=== PATIENT | female | born 1955 | race Caucasian/White ===

== ENCOUNTER 2016-07-06 08:28 | Day surgery (SDC) | payer BC ==
[2016-06-26 14:44] VITALS: BMI 29.4
[2016-07-06] MEDS ORDERED: PROPOFOL 20 ML ONE ×2 (08:37)
[2016-07-06 11:10] VITALS: TEMP 97.8
[2016-07-06 11:13] VITALS: BP 149/77; PULSE 68
--- NOTE | 2016-07-09 15:20 | PATH ---
Surgical Pathology Report Patient Name: YASHIRA BRITO [facility] [place]. Rec. #: [id number] /Age/Gender: 1955 (Age: 61) / F Account: [id number] Location: [facility]-ENDOSCOPY Taken: 07/06/2016 Received: 07/06/2016 Reported: 07/09/2016 Physicians: Haily Parra M.D. Specimen(s) Received A: BX COLON TRANSVERSE B: BX COLON DESCENDING C: BX SIGMOID D: BX DUODENUM E: BX ANTRUM F: BX GASTRIC BODY G: BX GE JUNCTION Clinical History Chronic diarrhea, abdominal pain, GERD Rule out celiac disease Final Diagnosis A. TRANSVERSE, BIOPSY: COLONIC MUCOSA WITH NO PATHOLOGIC FINDINGS. B. DESCENDING, BIOPSY: COLONIC MUCOSA WITH NO PATHOLOGIC FINDINGS. C. SIGMOID, BIOPSY: COLONIC MUCOSA WITH NO PATHOLOGIC FINDINGS. D. DUODENUM, BIOPSY: DUODENAL MUCOSA WITH NO PATHOLOGIC FINDINGS. Note: Features suggestive of celiac disease are not identified in this biopsy. E. ANTRUM, BIOPSY: MILD CHRONIC GASTRITIS. IMMUNOSTAIN IS NEGATIVE FOR H. PYLORI ORGANISMS. F. GASTRIC BODY, BIOPSY: MILD CHRONIC GASTRITIS. IMMUNOSTAIN IS NEGATIVE FOR H. PYLORI ORGANISMS. G. GE JUNCTION, BIOPSY: GASTRIC CARDIA-TYPE MUCOSA SHOWING MODERATE CHRONIC INFLAMMATION AND INTESTINAL METAPLASIA, COMPATIBLE WITH LY'S ESOPHAGUS IN THE APPROPRIATE CLINICAL/ENDOSCOPIC SETTING. NEGATIVE FOR DYSPLASIA. ESOPHAGEAL (SQUAMOUS) MUCOSA SHOWING FEATURES OF REFLUX ESOPHAGITIS. Electronically Signed Sherrie Long M.D. Gross Description A. Received in formalin, labeled "transverse" is a marin, irregular portion of soft tissue measuring 1.2 cm. in greatest dimension. The specimen is submitted in toto in one cassette. B. Received in formalin, labeled "descending" is a marin, irregular portion of soft tissue measuring 0.4 cm. in greatest dimension. The specimen is submitted in toto in one cassette. C. Received in formalin, labeled "sigmoid" is a marin, irregular portion of soft tissue measuring 0.4 cm. in greatest dimension. The specimen is submitted in toto in one cassette. D. Received in formalin, labeled "duodenum" are 6 marin, irregular portions of soft tissue ranging from 0.2-0.6 cm. in greatest dimension. The specimens are submitted in toto in one cassette. E. Received in formalin, labeled "antrum" is a marin, irregular portion of soft tissue measuring 0.5 cm. in greatest dimension. The specimen is submitted in toto in one cassette. F. Received in formalin, labeled "body" is a marin, irregular portion of soft tissue measuring 0.4 cm. in greatest dimension. The specimen is submitted in toto in one cassette. G. Received in formalin, labeled "GE junction" are 2 marin, irregular portions of soft tissue measuring 0.2 and 0.4 cm. in greatest dimension. The specimens are submitted in toto in one cassette. 07/06/2016 [facility]07/06/2016
== END 2016-07-06 11:05 | disposition home or self-care (01) ==
LOC: FASU-ENDO 08:28
PROVIDERS: ATTEND Internal Medicine
PROC: 0DB48ZX Excision of Esophagogastric Junction, Via Natural or Artificial Opening Endoscopic, Diagnostic (ICD-10-PCS; 2016-07-06)
PROC: 0DB68ZX Excision of Stomach, Via Natural or Artificial Opening Endoscopic, Diagnostic (ICD-10-PCS; 2016-07-06)
PROC: 0DBM8ZX Excision of Descending Colon, Via Natural or Artificial Opening Endoscopic, Diagnostic (ICD-10-PCS; 2016-07-06)
PROC: 0DBL8ZX Excision of Transverse Colon, Via Natural or Artificial Opening Endoscopic, Diagnostic (ICD-10-PCS; 2016-07-06)
PROC: 0DBN8ZX Excision of Sigmoid Colon, Via Natural or Artificial Opening Endoscopic, Diagnostic (ICD-10-PCS; 2016-07-06)
PROC: 0DB98ZX Excision of Duodenum, Via Natural or Artificial Opening Endoscopic, Diagnostic (ICD-10-PCS; principal; 2016-07-06 09:33)
DX: K29.50 Unspecified chronic gastritis without bleeding (principal); K22.70 Barrett's esophagus without dysplasia; K44.9 Diaphragmatic hernia without obstruction or gangrene
CPT/HCPCS: 88305-TC; 88342-TC